=== PATIENT | female | born 1960 | race Caucasian/White ===

== ENCOUNTER → 2020-04-16 08:20 | Outpatient (CLI) | payer BC, SELFPAY ==
--- NOTE | ~2020-04-16 | MM_ITS ---
EXAMINATION: MM diagnostic [facility] BI w juany HISTORY: Breast pain TECHNIQUE: Additional 3-D tomosynthesis images of the breasts were performed and synthetic 2-D images were generated. CAD analysis was submitted and interpreted. COMPARISON: Comparison to multiple prior studies sequentially, with oldest reviewed study dated 04/26. BREAST PARENCHYMAL COMPOSITION: There are scattered areas of fibroglandular density. FINDINGS: There are no suspicious masses, calcifications or architectural distortion in either breast to suggest malignancy. IMPRESSION: 1. No mammographic evidence for malignancy in either breast. 2. Routine yearly screening mammogram and regular clinical breast examination are recommended. BI-RADS Category 1: Negative Reviewed, dictated and finalized at location A. IMPRESSION: 1. No mammographic evidence for malignancy in either breast. 2. Routine yearly screening mammogram and regular clinical breast examination a re recommended. BI-RADS Category 1: Negative
== END ==
PROVIDERS: PCP Internal Medicine; Visit Provider Nurse Practitioner Obstetrics & Gynecology
DX: N64.4 Mastodynia (principal)
CPT/HCPCS: 77062; 77066; G0279

== ENCOUNTER → 2021-04-27 16:54 | Outpatient (CLI) | payer BC, SELFPAY ==
--- NOTE | ~2021-04-27 | MM_ITS ---
EXAMINATION: MM screening [facility] BI w juany HISTORY: Screening mammogram TECHNIQUE: Craniocaudal and mediolateral oblique 3-D tomosynthesis images were obtained and synthetic 2-D images were generated. CAD analysis was submitted and interpreted. COMPARISON: 04/16/2020, 07/24/2019, 07/12/2018 BREAST PARENCHYMAL COMPOSITION: The breasts are almost entirely fatty. FINDINGS: There is no evidence of suspicious mass, calcification, or architectural distortion to sugg est malignancy in either breast. There has been no suspicious interval change. IMPRESSION: 1. No mammographic evidence of malignancy. 2. Recommend routine screening mammography in one year. BI-RADS Category 1: Negative Reviewed, dictated and finalized at location A.
== END ==
PROVIDERS: Visit Provider Obstetrics & Gynecology
DX: Z12.31 Encounter for screening mammogram for malignant neoplasm of breast (principal)
CPT/HCPCS: 77063; 77067

== ENCOUNTER → 2022-05-01 12:28 | Outpatient (CLI) | payer BC, SELFPAY ==
--- NOTE | ~2022-05-01 | MM_ITS ---
EXAMINATION: MM screening [facility] BI w juany HISTORY: Screening mammogram TECHNIQUE: Craniocaudal and mediolateral oblique 3-D tomosynthesis images were obtained and synthetic 2-D images were generated. CAD analysis was submitted and interpreted. COMPARISON: 04/27/2021, 04/16/2020, 07/24/2019 BREAST PARENCHYMAL COMPOSITION: The breasts are almost entirely fatty. FINDINGS: There is no suspicious mass, calcification, or architectural distortion to suggest malignan cy in either breast. There has been no suspicious interval change. IMPRESSION: 1. No mammographic evidence of malignancy. 2. Recommend routine screening mammography in one year. BI-RADS Category 1: Negative Reviewed, dictated and finalized at location A.
== END ==
PROVIDERS: PCP Internal Medicine; Visit Provider Internal Medicine
DX: Z12.31 Encounter for screening mammogram for malignant neoplasm of breast (principal)
CPT/HCPCS: 77063; 77067

== ENCOUNTER → 2022-08-24 12:06 | Outpatient (CLI) | payer BC, SELFPAY ==
--- NOTE | ~2022-08-24 | XR_ITS ---
AP and oblique views of the right ribs, and PA and lateral chest radiographs Clinical History: Pain Findings: No rib fracture is seen. Osseous alignment is anatomic. There is probable minimal bibasilar interstitial pulmonary edema. Cardiomediastinal contour is within normal limits. Soft tissues are un remarkable. Impression: No rib fracture is seen. Probable minimal bibasilar interstitial pulmonary edema. Reviewed, dictated and finalized at [facility]. 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 Probable minimal bibasilar interstitial pulmonary edema.
== END ==
PROVIDERS: PCP Internal Medicine; Visit Provider Chiropractor
DX: R07.81 Pleurodynia (principal)
CPT/HCPCS: 71101

== ENCOUNTER → 2023-07-06 11:41 | Outpatient (CLI) | payer BC, SELFPAY ==
--- NOTE | ~2023-07-06 | MM_ITS ---
EXAMINATION: MM screening [facility] BI w juany HISTORY: Screening mammogram TECHNIQUE: Craniocaudal and mediolateral oblique 3-D tomosynthesis images were obtained and synthetic 2-D images were generated. CAD analysis was submitted and interpreted. COMPARISON: 05/01/2022, 04/27/2021, 04/16/2020 BREAST PARENCHYMAL COMPOSITION: The breasts are almost entirely fatty. FINDINGS: No suspicious mass, calcification, or architectural distortion are identified in either rik ast to suggest malignancy. There has been no suspicious interval change. IMPRESSION: 1. No mammographic evidence of malignancy. 2. Recommend routine screening mammography in one year. BI-RADS Category 1: Negative Reviewed, dictated and finalized at location A.
== END ==
PROVIDERS: PCP Nurse Practitioner Obstetrics & Gynecology; Visit Provider Internal Medicine
DX: Z12.31 Encounter for screening mammogram for malignant neoplasm of breast (principal)
CPT/HCPCS: 77063; 77067

== ENCOUNTER 2023-12-11 12:33 | Emergency (ER) | payer BC, SELFPAY ==
--- NOTE | ~2023-12-11 | CT_ITS ---
CT of the Abdomen and Pelvis: Indication: Abdominal pain Technique: 2.5 mm axial scans were obtained through the abdomen and pelvis following intravenous adm inistration of 100 cc of Omnipaque 350. Dose reduction technique was used on this scan by utilizing a utomated exposure control and iterative reconstruction technique. The dose-length product (DLP) was 1 269.42 mGy-cm. Findings: Scans through the lung bases are unremarkable. The liver, spleen, pancreas, gallbladder, adrenals and kidneys are within normal limits. No evidence of aortic aneurysm. No lymphadenopathy. No bowel obstruction or bowel wall thickening. There is no evidence to suggest acute appendicitis. Images through the pelvis were performed. Urinary bladder unremarkable. No pelvic mass seen. No ascit es. Impression: No significant abnormalities seen. Reviewed, dictated and finalized at location . Impression: No significant abnormalities seen.
[2023-12-11 12:34] VITALS: BP 186/105; PULSE 110; RESP 18; TEMP 36.8; O2SAT 100
[2023-12-11 12:45] LABS: Appearance Urine Clear (Clear); Bilirubin Urine Negative (Negative); Blood Urine Negative (Negative); Color Urine Yellow (Yellow); Glucose Urine UA Negative (Negative); Ketones Urine Negative (Negative); Leukocyte Esterase Ur Negative LEU/UL (Negative); Nitrate Urine Negative (Negative); Protein Urine Negative (Negative); Specific Grav Ur 1.005 (1.001-1.035); Urobilinogen Urine 0.2 mg/dL (<2.0); pH Urine 6.5 (5.0-9.0)
[2023-12-11 12:48] LABS: Add Urine Microscopic? NO
[2023-12-11 13:06] LABS: Basophils Absolute Auto 0.1 K/mm3 (0.0-0.1); Basophils Percent Auto 0.7 % (0.2-1.2); Eosinophils Absolute Auto 0.1 K/mm3 (0-0.3); Eosinophils Percent Auto 1.2 % (0-4.4); Hematocrit 43.7 % (37.0-47.0); Hemoglobin 14.4 g/dL (12.0-15.0); Immature Granulocyte Absolute 0.02 K/mm3 (0.00-0.031); Immature Granulocyte Percent A 0.3 % (0-0.5); Lymphocytes Absolute Auto 1.76 K/mm3 (0.9-3.2); Lymphocytes Percent Auto 22.9 % (18.3-44.2); Mean Corpuscular Hemoglobin 29.8 pg (26-34); Mean Corpuscular Volume 90.3 fl (80-100); Mean Platelet Volume 8.8 fl (7.4-10.4); Monocytes Absolute Auto 0.5 K/mm3 (0.1-0.6); Monocytes Percent Auto 6.9 % (2.6-8.5); Neutrophils Absolute Auto 5.2 K/mm3 (1.3-6.7); Platelet Count Result 251 k/mm3 (150-375); Red Blood Count 4.84 M/mm3 (4.2-5.4); Red Cell Distribution Width 13.2 % (11.5-14.5); White Blood Count 7.7 K/mm3 (4.5-10.0)
[2023-12-11 13:39] LABS: Alanine Aminotransferase 26 U/L (6-35); Albumin Level 4.8 g/dL (3.5-5.1); Alkaline Phosphatase 101 U/L (38-126); Anion Gap 8 mmol/L (4-12); Aspartate Amino Transferase 26 U/L (14-36); Bilirubin,Total 0.7 mg/dL (0.2-1.3); Blood Urea Nitrogen 16 mg/dL (7-17); Calcium 10.1 mg/dL (8.4-10.2); Carbon Dioxide 25 mmol/L (22-30); Chloride 105 mmol/L (98-107); Estimated CRCL calculation 100 ml/min; Estimated Glomerular Filt Rate > 60; Glucose 96 mg/dL (65-110); Lipase 47 U/L (23-300); Potassium 3.8 mmol/L (3.4-5.0); Sodium 138 mmol/L (137-145)
--- NOTE | 2023-12-11 13:39 | ED.ABDPAIN ---
HPI - Abdominal Pain General Chief Complaint: Abdominal Pain <ARNOL Love Last Filed: 12/11/23 15:18> Stated Complaint: ABD PAIN <ARNOL Love Last Filed: 12/11/23 15:18> Time Seen by Provider: 12/11/23 12:47 <ARNOL Love Last Filed: 12/11/23 15:18> History of Present Illness HPI narrative: 63-year-old female with history of hypercholesterolemia and hypertension presents to emergency department for diffuse abdominal pain that started yesterday. Patient reports intermittent abdominal pain for the past week. States she started having more significant pain overnight which prompted her to come to the ER today. She states the abdominal pain is lower and is associated with urinary frequency. She denies fever, nausea or vomiting, diarrhea, obstipation. Last bowel movement was today and normal. Denies prior abdominal surgeries. <ARNOL Love Last Filed: 12/11/23 15:18> Related Data Home Medications: Home Medications Medication Instructions Recorded Confirmed cholecalciferol (vitamin D3) 125 125 mcg PO DAILY 09/22/20 10/04/23 mcg (5,000 unit) capsule multivitamin (Multiple Vitamins 1 tablet PO DAILY 04/04/22 10/04/23 tablet) <Jacquelyn Reyez PA-C - Last Filed: 12/11/23 15:18> Allergies/Adverse Reactions: Allergies Allergy/AdvReac Type Severity Reaction Status Date / Time codeine AdvReac Unknown Vomiting Verified 12/11/23 13:39 <ARNOL Love Last Filed: 12/11/23 15:18> Review of Systems Review of Systems: CONSTITUTIONAL: Denies fever, chills, or sweats. EYES: Denies visual changes, redness, or discharge. ENT: Denies rhinorrhea, congestion, sore throat, or otalgia. CARDIOVASCULAR: Denies chest pain, palpitations, or edema. RESPIRATORY: Denies cough or dyspnea. GASTROINTESTINAL: See HPI GENITOURINARY: Denies dysuria or hematuria. SKIN: Denies rash or itching. MUSCULOSKELETAL: Denies back pain, joint pain, or myalgia. NEUROLOGIC: Denies headache, numbness, or weakness. PSYCHIATRIC: Denies anxiety or depression. <Jacquelyn Reyez PA-C - Last Filed: 12/11/23 15:18> PMFSH Past Medical History Medical History: Medical History Essential (primary) hypertension GERD (gastroesophageal reflux disease) Obesity Pure hypercholesterolemia Vitamin D deficiency <Jacquelyn Reyez PA-C - Last Filed: 12/11/23 15:18> Family History Family History: Family History Sibling Family history of genetic disorder Father Family history of lung cancer Other Family history of cardiovascular disease Hypertension <Jacquelyn Reyez PA-C - Last Filed: 12/11/23 15:18> Social History Social History: Social History Smoking status: Never smoker Alcohol intake: never Substance use type: does not use Lack of Transportation: No Lack of Food: Never True Current Housing: I Have Housing Concerned About Future Housing: No Difficulty Paying Gas/Electric Bills: No Difficulty Paying for Meds: No Currently Unemployed: No Education: Master's Degree or Higher <Jacquelyn Reyez PA-C - Last Filed: 12/11/23 15:18> Exam Narrative: GENERAL: Well-appearing, well-nourished, and in no acute distress. HEAD: Normocephalic, atraumatic. EYES: PERRLA and EOMI. ENT: Nares clear, no rhinorrhea or epistaxis. Mucous membranes moist. NECK: Supple. CHEST: Clear to auscultation. No respiratory distress. HEART: Regular rate and rhythm. No murmur heard. Normal peripheral pulses. ABDOMEN: Soft, nontender, nondistended, normal active bowel sounds. No guarding, rebound or rigidity. No CVA tenderness. EXTREMITIES: Normal range of motion. No edema. SKIN: Warm, dry, no rash. NEURO: No focal deficits. Alert and oriented x3 <Jacquelyn Viveros
--- NOTE | 2023-12-11 14:00 | ECG_ITS ---
Measurements Intervals [place] Rate: 107 P: 45 [place]: 204 QRS: -39 QRSD: 94 T: 26 QT: 332 Avg RR: 559 QTc: 395 QTcB: 444 QTcF: 403 Interpretive Statements SINUS TACHYCARDIA MARKED LEFT AXIS DEVIATION [QRS AXIS <30] LOW QRS VOLTAGE IN PRECORDIAL LEADS [QRS DEFLECTION < 1.0 mV IN CHEST LEADS] INCOMPLETE RIGHT BUNDLE BRANCH BLOCK [90+ ms QRS DURATION, TERMINAL R IN V1/V2, 40+ ms S IN I/aVL/V4/V5/V6] POOR R-WAVE PROGRESSION ABNORMAL ECG SEE SCANNED COPY FOR SIGNATURE MTDD
[2023-12-11] MEDS: SODIUM CHLORIDE 0.9% IV 1,000 ML 999 ML IV CONT (14:02)
[2023-12-11 14:18] VITALS: BP 159/81; PULSE 103; RESP 10; TEMP 36.7; O2SAT 100
[2023-12-11 14:28] LABS: Lactic Acid Reflex 0.9 mmol/L (0.7-2.0)
[2023-12-11] MEDS: KETOROLAC 30 MG/ML VIAL (*BKC) IV PUSH (14:57)
[2023-12-11 14:59] VITALS: BP 158/90; PULSE 103; RESP 18; O2SAT 100
[2023-12-11 15:05] VITALS: BP 166/87; PULSE 103; RESP 18; TEMP 36.7; O2SAT 100
== END 2023-12-11 15:20 | disposition home or self-care (01) ==
PROVIDERS: Family Medicine; Emergency Provider Physician Assistant; PCP Internal Medicine
DX: R10.84 Generalized abdominal pain (principal); I10 Essential (primary) hypertension; E78.00 Pure hypercholesterolemia, unspecified; E55.9 Vitamin D deficiency, unspecified; E66.9 Obesity, unspecified; Z68.41 Body mass index [BMI] 40.0-44.9, adult; K21.9 Gastro-esophageal reflux disease without esophagitis
CPT/HCPCS: 36415; 74177; 80053; 81003; 83605; 83690; 85025; 93005; 96361; 96374; 99284; J1885; J7030; Q9967

== ENCOUNTER 2024-04-23 15:40 | Emergency (ER) | payer BC, SELFPAY ==
--- NOTE | ~2024-04-23 | XR_ITS ---
XR chest 2V Ordering provider: Pura Castro History: 64 years Female with . CP radiates to back . Comparison: None. FINDINGS: MEDIASTINUM: The cardiac silhouette is not enlarged. LUNGS: No infiltrates, effusions or pneumothorax. OTHER: No free air under the diaphragm. Degenerative changes of the spine. IMPRESSION: No acute cardiopulmonary pathology. Reviewed, dictated and finalized at location A.
--- NOTE | 2024-04-23 15:43 | ECG_ITS ---
Test Date: 2024-04-23 15:50:57 Measurements Intervals [place] Rate: 94 P: 43 [place]: 160 QRS: -45 QRSD: 84 T: 30 QT: 342 QTc: 428 Interpretive Statements SINUS RHYTHM LOW QRS VOLTAGE IN PRECORDIAL LEADS [QRS DEFLECTION < 1.0 mV IN CHEST LEADS] INCOMPLETE RIGHT BUNDLE BRANCH BLOCK LEFT ANTERIOR FASCICULAR BLOCK [QRS AXIS <= -45, QR IN I, RS IN II] POSSIBLE ANTERIOR MYOCARDIAL INFARCTION , PROBABLY OLD [30 ms Q WAVE IN V3/V4, OR R < 0.2 mV IN V4] No previous ECG available for comparison Electronically Signed On 04-24-2024 14:27:29 CDT by Dax Pedersen M.D.
--- NOTE | 2024-04-23 15:54 | ED.CHESTPAIN ---
HPI - Chest Pain General Chief Complaint: Chest Pain <ARNOL Alfaro Last Filed: 04/23/24 16:26> Stated Complaint: CP radiates to shoulders, none currently <ARNOL Alfaro Last Filed: 04/23/24 16:26> Time Seen by Provider: 04/23/24 15:54 <ARNOL Alfaro Last Filed: 04/23/24 16:26> Focused HPI: Patient is a 64 y/o female who presents to the ED with report of chest pain. Patient reports she was sitting down at work around 2:30 p.m. today when she suddenly developed pain across her upper chest and upper back between her shoulder blades. She states pain lasted for approximately 30 seconds before resolving. She then had another shorter episode of pain which again resolved on its own. She denies any aggravation of the pain with movement, exertion, deep breathing. She does note history of similar pain 2 weeks ago that occurred in the middle of the night. Patient states pain is resolved currently, though she has had increased belching. She states she is going out of town for vacation soon and wanted to be evaluated. Patient denies any shortness breath, nausea, diaphoresis, lower extremity pain or swelling. She has been being evaluated for a Marie cyst of her right knee by PCP. No hx of DM, previous CAD. No smoking Hx. +FHx of cardiac disease in father. GENERAL: Well-appearing, morbidly obese with BMI, and in no acute distress. HEAD: Normocephalic, atraumatic. CHEST: Clear to auscultation. ?No respiratory distress. HEART: Regular rate and rhythm.? MSK: No lower ext edema. No calf tenderness. NEURO: ?Alert and oriented x3. Patient screened in triage and initial orders placed.? ?Additional care and disposition to be based upon?diagnostic testing and treatment. <ARNOL Alfaro Last Filed: 04/23/24 16:26> Source: patient <ARNOL Alfaro Last Filed: 04/23/24 16:26> Mode of arrival: ambulatory <ARNOL Alfaro Last Filed: 04/23/24 16:26> Limitations: no limitations <Raquel To PA-C - Last Filed: 04/23/24 16:26> History of Present Illness HPI narrative: Patient is a 64-year-old female who presents emergency department with chief complaint chest pain. Patient reports that she was at work around 230 this afternoon she started having some discomfort in her chest that then went across her shoulder blades patient reports that she had 2 total episodes lasting about 30 seconds and patient states the symptoms have been resolved since about 230 patient did report that she has had some belching afterwards patient was seen for abdominal pain and had extensive workup for that previously patient reports she has had a stress test for past the was negative patient reports that she is currently symptom free. <Jonathan Cueto MD - Last Filed: 04/23/24 20:17> Related Data Home Medications: Home Medications Medication Instructions Recorded Confirmed cholecalciferol (vitamin D3) 125 125 mcg PO DAILY 09/22/20 10/04/23 mcg (5,000 unit) capsule multivitamin (Multiple Vitamins 1 tablet PO DAILY 04/04/22 10/04/23 tablet) omega 1-tic-fzj-fish oil 60 mg-90 1 cap PO DAILY 02/20/24 mg-500 mg capsule (Fish Oil) <Raquel To PA-C - Last Filed: 04/23/24 16:26> Allergies/Adverse Reactions: Allergies Allergy/AdvReac Type Severity Reaction Status Date / Time codeine AdvReac Unknown Vomiting Verified 04/09/24 13:59 <Raquel To PA-C - Last Filed: 04/23/24 16:26> Review of Systems Review of Systems: A 10 system review of systems was completed on the patient and is negative except for what is stated in the HPI. Nursing and ancillary documentation was reviewed. <Jonathan Cueto MD - Last Filed: 04/23/24 20:17> PMFSH Past Medical History Medical History: Medical History Essential (primary) hy
--- NOTE | 2024-04-23 19:11 | ECG_ITS ---
Test Date: 2024-04-23 19:49:08 Measurements Intervals [place] Rate: 97 P: 25 MS: 183 QRS: -26 QRSD: 86 T: 14 QT: 342 QTc: 436 Interpretive Statements SINUS RHYTHM LOW QRS VOLTAGE IN PRECORDIAL LEADS [QRS DEFLECTION < 1.0 mV IN CHEST LEADS] INCOMPLETE RIGHT BUNDLE BRANCH BLOCK POSSIBLE ANTERIOR MYOCARDIAL INFARCTION , PROBABLY OLD [30 ms Q WAVE IN V3/V4, OR R < 0.2 mV IN V4] Compared to ECG 04/23/2024 15:50:57 NO SIGNIFICANT CHANGES Electronically Signed On 04-24-2024 14:40:14 CDT by Dax Pedersen M.D.
[2024-04-23 19:41] VITALS: O2SAT 100
[2024-04-23 19:43] VITALS: PULSE 91
[2024-04-23 19:44] VITALS: BP 139/98; PULSE 97; RESP 15; TEMP 36.6; O2SAT 100
[2024-04-23] MEDS: ASPIRIN 81 MG CHEWABLE TABLET 324 MG PO (19:47)
[2024-04-23 19:48] VITALS: O2SAT 100
[2024-04-23 19:48] LABS: Basophils Absolute Auto 0.1 K/mm3 (0.0-0.1); Basophils Percent Auto 0.6 % (0.2-1.2); Eosinophils Absolute Auto 0.1 K/mm3 (0-0.3); Eosinophils Percent Auto 0.7 % (0-4.4); Hematocrit 44.9 % (37.0-47.0); Hemoglobin 14.3 g/dL (12.0-15.0); Immature Granulocyte Absolute 0.03 K/mm3 (0.00-0.031); Immature Granulocyte Percent A 0.3 % (0-0.5); Lymphocytes Absolute Auto 2.19 K/mm3 (0.9-3.2); Lymphocytes Percent Auto 21.7 % (18.3-44.2); Mean Corpuscular HGB Conc 31.8 g/dl (32-36); Mean Corpuscular Hemoglobin 29.5 pg (26-34); Mean Corpuscular Volume 92.8 fl (80-100); Mean Platelet Volume 8.8 fl (7.4-10.4); Monocytes Absolute Auto 0.6 K/mm3 (0.1-0.6); Monocytes Percent Auto 5.9 % (2.6-8.5); Neutrophils Absolute Auto 7.2 K/mm3 (1.3-6.7); Neutrophils Percent Auto 70.8 % (45.5-73.1); Platelet Count Result 257 k/mm3 (150-375); Red Blood Count 4.84 M/mm3 (4.2-5.4); Red Cell Distribution Width 13.4 % (11.5-14.5); White Blood Count 10.1 K/mm3 (4.5-10.0)
[2024-04-23 19:59] LABS: Alanine Aminotransferase 28 U/L (6-35); Albumin Level 4.6 g/dL (3.5-5.1); Alkaline Phosphatase 93 U/L (38-126); Anion Gap 12 mmol/L (4-12); Aspartate Amino Transferase 27 U/L (14-36); Bilirubin,Total 0.6 mg/dL (0.2-1.3); Blood Urea Nitrogen 14 mg/dL (7-17); Calcium 9.9 mg/dL (8.4-10.2); Carbon Dioxide 28 mmol/L (22-30); Chloride 100 mmol/L (98-107); Estimated Glomerular Filt Rate > 60; Glucose 97 mg/dL (65-110); INR 1.1; Lipase 45 U/L (23-300); Potassium 4.4 mmol/L (3.4-5.0); Prothrombin Time 14.6 Seconds (11.1-14.7); Sodium 140 mmol/L (137-145)
[2024-04-23 20:00] LABS: Partial Thromboplastin Time 27.3 Seconds (22.3-36.8)
[2024-04-23 20:04] LABS: D Dimer 0.43 ug/mL (<0.48)
[2024-04-23 20:11] LABS: Troponin I < 0.012 ng/mL (0.000-0.034)
== END 2024-04-23 20:22 | disposition home or self-care (01) ==
PROVIDERS: Student in an Organized Health Care Education/Training Program; Emergency Provider Emergency Medicine; PCP Internal Medicine
DX: R07.89 Other chest pain (principal); I10 Essential (primary) hypertension; E78.00 Pure hypercholesterolemia, unspecified; E55.9 Vitamin D deficiency, unspecified; E66.9 Obesity, unspecified; K21.9 Gastro-esophageal reflux disease without esophagitis; Z79.899 Other long term (current) drug therapy; I45.2 Bifascicular block; R94.31 Abnormal electrocardiogram [ECG] [EKG]
CPT/HCPCS: 36415; 71046; 80053; 83690; 84484; 85025; 85380; 85610; 85730; 93005; 99284; A9270

== ENCOUNTER 2024-05-02 08:54 | Outpatient (CLI) | payer BC, SELFPAY ==
--- NOTE | ~2024-05-02 | XR_ITS ---
XR knee RT 3V 05/02/2024 09:11 Indication: Right knee pain Procedure: 3 views right knee Comparison: No prior studies for comparison. Findings: There is moderate osteoarthritis of the right knee. Small joint effusion. No fracture or tr aumatic malalignment. No foreign bodies. Impression: 1: Moderate osteoarthritis of the right knee. Reviewed, dictated and finalized at location B. Impression: 1: Moderate osteoarthritis of the right knee.
== END 2024-05-02 08:55 ==
PROVIDERS: PCP Internal Medicine; Visit Provider Nurse Practitioner
DX: M25.561 Pain in right knee (principal); M17.11 Unilateral primary osteoarthritis, right knee
CPT/HCPCS: 73562

== ENCOUNTER 2024-07-09 08:44 | Outpatient (CLI) | payer BC, SELFPAY ==
--- NOTE | ~2024-07-09 | MM_ITS ---
EXAMINATION: MM screening [facility] BI w juany HISTORY: Screening TECHNIQUE: Craniocaudal and mediolateral oblique 3-D tomosynthesis images were obtained and synthetic 2-D images were generated. CAD analysis was submitted and interpreted. COMPARISON: Comparison to multiple prior studies sequentially, with oldest reviewed study dated 05/2018. BREAST PARENCHYMAL COMPOSITION: Not Dense: The breasts are almost entirely fatty. FINDINGS: There is no evidence of suspicious mass, calcification, or architectural distortion to sugg est malignancy in either breast. There has been no suspicious interval change. IMPRESSION: 1. No mammographic evidence of malignancy. 2. Recommend routine screening mammography in one year. BI-RADS Category 1: Negative Reviewed, dictated and finalized at location B. 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
== END 2024-07-09 08:45 | disposition home or self-care (01) ==
PROVIDERS: PCP Internal Medicine; Visit Provider Nurse Practitioner
DX: Z12.31 Encounter for screening mammogram for malignant neoplasm of breast (principal)
CPT/HCPCS: 77063; 77067

== ENCOUNTER 2025-04-07 18:40 | Emergency (ER) | payer BC, SELFPAY ==
--- NOTE | ~2025-04-07 | CT_ITS ---
CLINICAL INDICATION: Palpable abnormality within the left upper quadrant with associated abdominal pa in COMPARISON: 12/11/2023. TECHNIQUE: An enhanced CT of the abdomen and pelvis was performed utilizing multislice spiral Expensify ue reconstructed at 5 mm slice thickness. Coronal and sagittal reconstructions were performed. This CT examination was performed utilizing dose reduction techniques. DLP: 1602 mGy-cm FINDINGS/OBSERVATIONS: Lung: The lungs are clear. The heart is borderline enlarged, without pericardial effusion. Mediastinum: No pathologically enlarged or morphologically suspicious lymph nodes are identified within the medias tinum, bilateral axilla, within the soft tissues of the anterior chest wall. Soft tissues of the chest: Unremarkable. Bones of the chest: No acute fracture. No lytic or blastic lesions are identified. Liver: The liver enhances homogeneously and is not enlarged. Gallbladder and biliary system: The gallbladder is only minimally distended, but otherwise unremarkable. Pancreas: The pancreas enhances homogeneously, without ductal dilatation. Spleen: Kidneys: The bilateral kidneys enhance symmetrically without hydronephrosis or renal calculi. Adrenal glands: Unremarkable. Gastrointestinal tract: Small hiatal hernia is present. Trace fecal stasis within the colon. Appendix: The air-filled appendix is of normal caliber (axial series, images 185 through 203). Vasculature: No calcified atherosclerotic disease is present. No aneurysmal dilatation. Lymph nodes: Scattered nonpathologically enlarged lymph nodes within the root of the mesentery and deep in the pel vis. Pelvic structures: The bladder is minimally distended and otherwise unremarkable. The uterus is anteverted and anteflexed, and otherwise unremarkable. Body wall and musculoskeletal: Small fat-containing umbilical hernia. No soft tissue asymmetry is identified within the left upper quadrant, within the region of the repor nighat palpable abnormality. Age-appropriate degenerative disease within the thoracic and lumbosacral spine IMPRESSION: No acute findings within the chest, abdomen or pelvis to account for patient's presentation. Reviewed, dictated and finalized at location A.
[2025-04-07 18:42] VITALS: BP 157/80; PULSE 98; RESP 16; TEMP 36.8; O2SAT 98
--- OUTSIDE RECORDS SUMMARY | 2025-04-07 18:42 | XMS_ITS | Clinical Summary ---
Author Organization [facility] Address [address] [place] [address] Care Team Providers Care Field Service Consultant Name Role Phone Arias Arguelles DO Primary Care Provider [phone] Source Comments [facility],non-owned Affiliates and Associated Physician Practices is amultiple site organization consisting of ambulatory clinics and hospital sitesin [place], [place], [place] and [place]. This disclosure is being madepursuant to the Care Everywhere program and may not contain all informatio navailable regarding this patient. Last updated 18[facility] [facility] Allergies Active Allergy Reactions Criticality Noted Date Comments Codeine 03/19/2012 Medications * Be aware that medications may not be up to date on this document. Alwaysverify current medications with the patient. hydroCHLOROthiaz no (HYDRODIURIL) 25 MG tablet Take 25 mg by mouth once daily Active Vitamins/Mineral s TABS Active Immunizations Immunization Administration Dates Next Due FLU VACCINE QUAD IIV4 PF ID 09/14/2016 INFLUENZA VACCINE, QUADR. 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 Gender Identity Not on file Sexual Orientation Not on file Last Filed Vital Signs Vital Sign Reading Time Taken Comments Blood Pressure - - Pulse - - Temperature - - Respiratory Rate - - Oxygen Saturation - - Inhaled Oxygen Concentration - - Weight 102.1 kg (225 lb) 04/16/2019 6:34 AM CDT Height 160 cm (5' 3) 04/16/2019 6:34 AM CDT Body Mass Index 39.86 04/16/2019 6:34 AM CDT Plan of Treatment Health Maintenance Due Date Last Done Comments COLOGUARD (AGES 45-75) - COL ON CA SCREENING 1962 COLON MONITORING 1962 COLONOSCOPY - COLON CA SCREENING 1962 CT COLONOGRAPHY - COLON CA SCREENING 1962 Colorectal Cancer Screening 1962 FIT - COLON CA SCREENING 1962 FLEX SIG - COLON CA SCREENING 1962 LIPID TESTING 1962 MAMMOGRAM 1962 HIV SCREENING 1977 HEPATITIS C SCREENING 02/09/1980 DTAP/TDAP/TD VACCINES (1 - Tdap) 1981 PNEUMOCOCCAL VACCINE 50+ (1 of 1 - PCV) 02/14/2012 ZOSTER VACCINE (1 of 2) 02/14/2012 SCREENING FOR DIABETES 06/27/2019 COVID-19 VACCINE (1 - 2023-2 5 season) 2024 DEPRESSION SCREENING 09/03/2024 INFLUENZA VACCINE (#1) 2025 9, 07/04/2017, 09/14/2016 Respiratory Syncytial Virus (RSV) Vaccine Pt: or over 60 yrs (1 - 1-dose 75+ series) 2037 HEPATITIS B VACCINE Aged Out No longe r eligible based on patient's age to complete this topic HIB VACCINE Aged Out No longer eligi ble based on patient's age to complete this topic HPV VACCINE Aged Out No longer eligi ble based on patient's age to complete this topic MENINGOCOCCAL (Group B) VACCINE SHARED DECISION-MAKING Aged Out No longer eligible based on patient's age to complete this topic MENINGOCOCCAL GROUPS A/C/Y/W VACCINE Aged Out No longer eligible b ased on patient's age to complete this topic Insurance Care Teams Field Service Consultant Relationship Specialty Start Date End Date Arias Arguelles DO PCP - General Internal Medicine 09/14/16
[2025-04-07 20:10] LABS: Add Urine Microscopic? YES; Appearance Urine Clear (Clear); Glucose Urine UA Negative (Negative); Leukocyte Esterase Ur Trace LEU/UL (Negative); Nitrate Urine Negative (Negative); Non Pathogenic Casts 0-2; Specific Grav Ur 1.024 (1.001-1.035)
[2025-04-07 20:13] VITALS: BP 169/93; PULSE 69; RESP 20; O2SAT 97
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
--- OUTSIDE RECORDS SUMMARY | 2025-04-07 20:43 | XMS_ITS | Clinical Summary ---
Author Organization [facility] [employer] Address [address] [place] [address] Care Team Providers Care Manager Application Name Role Phone Arias Arguelles DO Primary Care Provider [phone] Source Comments [facility] [employer],non-owned Affiliates and Associated Physician Practices is amultiple site organization consisting of ambulatory clinics and hospital sitesin [place], [place], [place] and [place]. This disclosure is being madepursuant to the Care Everywhere program and may not contain all informatio navailable regarding this patient. 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
--- NOTE | 2025-04-07 20:55 | PC.NURSE ---
Pt. states she is only having 3/10 abdominal pain and does not want the ordered morphine at this time. She will alert this RN if her pain gets worse.
[2025-04-07 20:56] VITALS: BP 169/93; PULSE 96; RESP 15; O2SAT 97
[2025-04-07 21:03] LABS: Hematocrit 42.5 % (37.0-47.0); Hemoglobin 13.7 g/dL (12.0-15.0); Immature Granulocyte Percent A 0.2 % (0-0.5); Lymphocytes Absolute Auto 2.07 K/mm3 (0.9-3.2); Mean Corpuscular HGB Conc 32.2 g/dl (32-36); Mean Corpuscular Hemoglobin 28.8 pg (26-34); Mean Corpuscular Volume 89.5 fl (80-100); Nucleated Red Blood Cells Absolute Auto 0.000 K/mm3 (0.0-0.012); Nucleated Red Blood Cells Perc 0.0 % (0.0-0.2); Platelet Count Result 237 k/mm3 (150-375); Red Blood Count 4.75 M/mm3 (4.2-5.4); White Blood Count 8.5 K/mm3 (4.5-10.0)
[2025-04-07 21:32] LABS: Alanine Aminotransferase 22 U/L (6-35); Albumin Level 4.5 g/dL (3.5-5.1); Alkaline Phosphatase 94 U/L (38-126); Anion Gap 8 mmol/L (4-12); Aspartate Amino Transferase 31 U/L (14-36); Bilirubin,Total 0.7 mg/dL (0.2-1.3); Blood Urea Nitrogen 23 mg/dL (7-17); Calcium 9.7 mg/dL (8.4-10.2); Carbon Dioxide 21 mmol/L (22-30); Chloride 106 mmol/L (98-107); Estimated CRCL calculation 75 ml/min; Estimated Glomerular Filt Rate > 60; Glucose 91 mg/dL (65-110); Potassium 3.8 mmol/L (3.4-5.0); Sodium 135 mmol/L (137-145); Total Protein 7.5 g/dL (6.3-8.2)
[2025-04-07 22:15] VITALS: BP 155/83; PULSE 75; RESP 16; O2SAT 98
--- NOTE | 2025-04-07 22:46 | PC.NURSE ---
Pt. states she still does not want the morphine. Her pain has not increased.
[2025-04-07] MEDS: KETOROLAC 30 MG/ML VIAL (*BKC) IV PUSH (23:45)
[2025-04-08 01:16] VITALS: BP 167/89; PULSE 97; RESP 16; TEMP 36.9; O2SAT 97
== END 2025-04-08 01:20 | disposition home or self-care (01) ==
PROVIDERS: Emergency Provider Student in an Organized Health Care Education/Training Program; PCP Internal Medicine
DX: R10.12 Left upper quadrant pain (principal); I10 Essential (primary) hypertension; E55.9 Vitamin D deficiency, unspecified; E78.00 Pure hypercholesterolemia, unspecified; K21.9 Gastro-esophageal reflux disease without esophagitis
CPT/HCPCS: 36415; 71260; 74177; 80053; 81001; 85025; 96374; 99284; J1885; Q9967

== ENCOUNTER 2025-07-10 15:05 | Outpatient (CLI) | payer BC, SELFPAY ==
--- NOTE | ~2025-07-10 | MM_ITS ---
EXAMINATION: MM screening nubia BI w juany HISTORY: Screening TECHNIQUE: Craniocaudal and mediolateral oblique 3-D tomosynthesis images were obtained and synthetic 2-D images were generated. CAD analysis was submitted and interpreted. COMPARISON: Comparison to multiple prior studies sequentially, with oldest reviewed study dated 07/24/2019. BREAST PARENCHYMAL COMPOSITION: Not Dense: The breasts are almost entirely fatty. FINDINGS: There is no evidence of suspicious mass, calcification, or architectural distortion to suggest malignancy in either breast. There has been no suspicious interval change. IMPRESSION: 1. No mammographic evidence of malignancy. 2. Recommend routine screening mammography in one year. BI-RADS Category 1: Negative Reviewed, dictated and finalized at location O. RANCE CLAIM REPRESENTATIVE
== END 2025-07-10 15:06 | disposition home or self-care (01) ==
LOC: MICIMG 15:07
PROVIDERS: PCP Nurse Practitioner; Visit Provider Nurse Practitioner
DX: Z12.31 Encounter for screening mammogram for malignant neoplasm of breast (principal)
CPT/HCPCS: 77063; 77067

== ENCOUNTER 2025-08-13 07:34 | Outpatient (CLI) | payer BC, SELFPAY ==
--- NOTE | ~2025-08-13 | XR_ITS ---
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 Findings: No acute fracture or malalignment. No significant degenerative changes. Soft tissues unremarkable. Impression: No acute fracture or malalignment. Reviewed, dictated and finalized at location P. LRY MAKING INSTRUCTOR Impression: No acute fracture or malalignment.
== END 2025-08-13 07:35 | disposition home or self-care (01) ==
LOC: MICIMG 07:35
PROVIDERS: PCP Nurse Practitioner; Visit Provider Nurse Practitioner
DX: M79.672 Pain in left foot (principal)
CPT/HCPCS: 73620